=== PATIENT | male | born 1930 | race Caucasian/White ===

== ENCOUNTER → 2017-08-12 | Outpatient (CLI) | payer MEDICARE, OTHER | END | disposition home or self-care (01) | LOC: CVU 10:45 | PROVIDERS: ATTEND Internal Medicine Cardiovascular Disease | DX: I37.1 Nonrheumatic pulmonary valve insufficiency (principal); I35.8 Other nonrheumatic aortic valve disorders; I51.7 Cardiomegaly; I25.10 Atherosclerotic heart disease of native coronary artery without angina pectoris; C44.90 Unspecified malignant neoplasm of skin, unspecified; Z87.891 Personal history of nicotine dependence | CPT/HCPCS: 93306 ==

== ENCOUNTER 2018-09-14 16:44 | Inpatient (IN) | payer MEDICARE, OTHER ==
[~2018-09-14] VITALS: Ht 177.8 cm; Wt 80.4 kg
[2018-09-14 17:31] LABS: INTERNATIONAL NORMALIZED RATIO 1.72 (0.93-1.1); PROTHROMBIN TIME 17.5 Seconds (9.6-11.5)
[2018-09-14 17:35] LABS: ALANINE AMINOTRANSFERASE 25 U/L (12-78); ALBUMIN 2.5 g/dL (3.4-5.0); ANION GAP 11 mmol/L (5-15); CALCIUM 7.3 mg/dL (8.5-10.1); CHLORIDE 117 mmol/L (98-107); CREATININE 2.49 mg/dL (0.7-1.3)
[2018-09-14 17:37] LABS: ALKALINE PHOSPHATASE 60 U/L (45-117); BILIRUBIN,TOTAL 0.9 mg/dL (0.2-1.0); TOTAL PROTEIN 5.7 g/dL (6.4-8.2)
[2018-09-14 17:41] LABS: BASOPHILS # (AUTO) 0.11 x10^3/uL (0-0.1); BASOPHILS % (AUTO) 1 % (0-1); EOSINOPHILS # (AUTO) 0.05 x10^3/uL (0-0.4); EOSINOPHILS % (AUTO) 0 % (1-7); LYMPHOCYTES # (AUTO) 1.75 x10^3/uL (1-3.4); LYMPHOCYTES % (AUTO) 14 % (22-44); MD NO; MEAN CORPUSCULAR HEMOGLOBIN 32.1 pg (27.5-34.5); MEAN CORPUSCULAR VOLUME 94.4 fL (81-97); MEAN PLATELET VOLUME 7.9 fL (7.4-10.4); MONOCYTES % (AUTO) 7 % (2-9); NEUTROPHILS # (AUTO) 9.67 x10^3/uL (1.8-6.8); NEUTROPHILS % (AUTO) 78 % (42-75); PLATELET COUNT 161 x10^3/uL (130-400); RED CELL DISTRIBUTION WIDTH 17.1 % (9.4-14.8)
[2018-09-14] MEDS ORDERED: AUGMENTIN PO (17:41)
[2018-09-14] MEDS ORDERED: ATEN25TA PO (17:41)
[2018-09-14] MEDS ORDERED: SIMV20TA3 PO (17:41)
[2018-09-14] MEDS ORDERED: AMLO10TA6 PO (17:41)
[2018-09-14] MEDS ORDERED: DILT240C2 PO (17:41)
[2018-09-14] MEDS ORDERED: WARF5TAB PO (17:41)
[2018-09-14] MEDS ORDERED: FURO40TA6 PO (17:41)
[2018-09-14] MEDS ORDERED: ALLO300T PO (17:41)
[2018-09-14] MEDS ORDERED: ONDANSETRON ODT 4 MG PO PRN (19:30)
[2018-09-14] MEDS ORDERED: PANTOPRAZOLE 80 MG in SODIUM CHLORIDE 0.9% 50 ML IV ONE (19:30)
[2018-09-14] MEDS ORDERED: ACETAMINOPHEN 325 MG TABLET PO PRN (19:30)
[2018-09-14] MEDS: AUGMENTIN MC SCH ×2 (19:30→22:30)
[2018-09-14] MEDS ORDERED: SODIUM CHLORIDE 0.45% 1,000 ML IV SCH (19:30)
[2018-09-14] MEDS: [UNRECOGNIZED DRUG - OTHER] MC SCH (19:30)
[2018-09-14] MEDS ORDERED: SIMVASTATIN 20 MG TABLET PO SCH (21:00)
[2018-09-14] MEDS: AUGMENTIN PO SCH (21:27)
[2018-09-14] MEDS: PANTOPRAZOLE 80 MG in SODIUM CHLORIDE 0.9% 100 ML IV SCH (21:27)
[2018-09-14 23:28] VITALS: BP 106/65
[2018-09-14 23:31] VITALS: BP 118/71
[2018-09-14 23:37] VITALS: BP 114/70
[2018-09-14 23:45] VITALS: BP 109/68
[2018-09-15] VITALS (8 sets, daily range): BP systolic 99–111; BP diastolic 56–76
[2018-09-15] MEDS: AUGMENTIN MC SCH ×2 (03:30→05:46)
[2018-09-15] MEDS: [UNRECOGNIZED DRUG - OTHER] MC SCH (03:30)
[2018-09-15] MEDS ORDERED: ALBUTEROL/IPRATROPIUM 2.5MG/0.5MG, 3 ML ONE (04:15)
[2018-09-15 04:16] LABS: CREATININE,URINE RANDOM 37.9 mg/dL
[2018-09-15] MEDS ORDERED: LORazepam 2 MG/ML, 1ML IVPush ONE (04:30)
[2018-09-15 04:57] LABS: BASOPHILS # (AUTO) 0.07 x10^3/uL (0-0.1); BASOPHILS % (AUTO) 1 % (0-1); EOSINOPHILS % (AUTO) 1 % (1-7); LYMPHOCYTES # (AUTO) 1.45 x10^3/uL (1-3.4); LYMPHOCYTES % (AUTO) 12 % (22-44); MD NO; MEAN CORPUSCULAR HGB CONC 34.4 g/dL (33.2-36.2); MEAN PLATELET VOLUME 7.3 fL (7.4-10.4); MONOCYTES # (AUTO) 0.76 x10^3/uL (0.2-0.8); MONOCYTES % (AUTO) 7 % (2-9); NEUTROPHILS # (AUTO) 9.26 x10^3/uL (1.8-6.8); NEUTROPHILS % (AUTO) 80 % (42-75); PLATELET COUNT 162 x10^3/uL (130-400); RED BLOOD COUNT 2.92 x10^6/uL (4.38-5.82); RED CELL DISTRIBUTION WIDTH 18.1 % (9.4-14.8)
[2018-09-15 05:06] LABS: INTERNATIONAL NORMALIZED RATIO 2.01 (0.93-1.1); PROTHROMBIN TIME 20.4 Seconds (9.6-11.5)
[2018-09-15 05:09] LABS: ALBUMIN 2.8 g/dL (3.4-5.0); ANION GAP 8 mmol/L (5-15); CALCIUM 8.1 mg/dL (8.5-10.1); CHLORIDE 116 mmol/L (98-107)
[2018-09-15 05:16] LABS: ALANINE AMINOTRANSFERASE 26 U/L (12-78); ALKALINE PHOSPHATASE 61 U/L (45-117); BILIRUBIN,TOTAL 0.7 mg/dL (0.2-1.0); CREATININE 2.61 mg/dL (0.7-1.3); TROPONIN I 0.022 ng/mL (0.000-0.045)
[2018-09-15] MEDS: AMLODIPINE 10 MG TAB PO SCH (08:41)
[2018-09-15] MEDS: DILTIAZEM 240 MG CAP.ER.24H PO SCH (08:41)
[2018-09-15] MEDS: PANTOPRAZOLE 80 MG in SODIUM CHLORIDE 0.9% 100 ML IV SCH ×2 (08:41→21:04)
[2018-09-15] MEDS: ATENOLOL 100 MG TABLET PO SCH (08:41)
[2018-09-15] MEDS: AUGMENTIN PO SCH (08:42)
[2018-09-15] MEDS ORDERED: AMOXICILLIN/CLAV. 400 MG/5 ML ORAL SUSP PO SCH (10:30)
[2018-09-15] MEDS ORDERED: PROPOFOL 10 MG/ML, 20ML ONE (11:02)
[2018-09-15] MEDS ORDERED: EPINEPHRINE SYRINGE 0.1 MG/ML, 10ML ONE (11:40)
[2018-09-15 13:42] LABS: TROPONIN I 0.024 ng/mL (0.000-0.045)
[2018-09-15] MEDS: AMOXICILLIN/CLAV 500-125MG TABLET PO SCH (15:09)
[2018-09-15] MEDS ORDERED: PHENYLEPHRINE 10 MG/ML ONE (16:01)
[2018-09-15] MEDS: ALBUTEROL SULFATE 2.5 MG/3 ML NPPB PRN (20:06)
[2018-09-15] MEDS: ATORVASTATIN 20 MG TABLET PO SCH (21:04)
[2018-09-16 00:10] VITALS: BP 103/58
[2018-09-16] MEDS: ALBUTEROL SULFATE 2.5 MG/3 ML NPPB PRN ×2 (03:30→11:40)
[2018-09-16] MEDS: AMOXICILLIN/CLAV 500-125MG TABLET PO SCH (03:48)
[2018-09-16 04:00] VITALS: BP 110/66
[2018-09-16 07:30] VITALS: BP 112/72
[2018-09-16] MEDS: ATENOLOL 100 MG TABLET PO SCH (09:06)
[2018-09-16] MEDS: DILTIAZEM 240 MG CAP.ER.24H PO SCH (09:06)
[2018-09-16] MEDS: AMLODIPINE 10 MG TAB PO SCH (09:06)
[2018-09-16 09:12] LABS: BASOPHILS # (AUTO) 0.07 x10^3/uL (0-0.1); BASOPHILS % (AUTO) 1 % (0-1); EOSINOPHILS # (AUTO) 0.17 x10^3/uL (0-0.4); EOSINOPHILS % (AUTO) 1 % (1-7); LYMPHOCYTES # (AUTO) 1.06 x10^3/uL (1-3.4); LYMPHOCYTES % (AUTO) 9 % (22-44); MD NO; MEAN CORPUSCULAR HEMOGLOBIN 31.5 pg (27.5-34.5); MEAN CORPUSCULAR HGB CONC 32.9 g/dL (33.2-36.2); MEAN CORPUSCULAR VOLUME 95.8 fL (81-97); MEAN PLATELET VOLUME 7.1 fL (7.4-10.4); MONOCYTES # (AUTO) 0.54 x10^3/uL (0.2-0.8); MONOCYTES % (AUTO) 5 % (2-9); NEUTROPHILS # (AUTO) 9.93 x10^3/uL (1.8-6.8); NEUTROPHILS % (AUTO) 84 % (42-75); PLATELET COUNT 161 x10^3/uL (130-400); RED BLOOD COUNT 2.57 x10^6/uL (4.38-5.82); RED CELL DISTRIBUTION WIDTH 19.4 % (9.4-14.8)
[2018-09-16 09:26] LABS: ALBUMIN 2.5 g/dL (3.4-5.0); ANION GAP 6 mmol/L (5-15); CALCIUM 7.9 mg/dL (8.5-10.1); CHLORIDE 119 mmol/L (98-107)
[2018-09-16 09:29] LABS: ALANINE AMINOTRANSFERASE 24 U/L (12-78); ALKALINE PHOSPHATASE 61 U/L (45-117); BILIRUBIN,TOTAL 0.6 mg/dL (0.2-1.0); CREATININE 2.35 mg/dL (0.7-1.3); TOTAL PROTEIN 5.6 g/dL (6.4-8.2)
[2018-09-16] MEDS: PANTOPRAZOLE 80 MG in SODIUM CHLORIDE 0.9% 100 ML IV SCH (10:16)
[2018-09-16 12:38] VITALS: BP 109/71
[2018-09-16] MEDS ORDERED: AMPICILLIN/SULBACTAM 3 GM in SODIUM CHLORIDE 0.9% 100 ML IV SCH (14:00)
[2018-09-16] MEDS ORDERED: PHARMACY MAY ADJ FOR RENAL FX MC PRN (14:00)
[2018-09-16] MEDS ORDERED: GUAIFENESIN ER 600 MG TABLET PO SCH ×2 (16:30→21:00)
[2018-09-16 17:05] LABS: MICROSCOPIC AUTO
[2018-09-16 17:15] LABS: CREATININE,URINE RANDOM 58.2 mg/dL
[2018-09-16] MEDS: GUAIFENESIN ER 600 MG TABLET PO SCH ×2 (17:48→20:40)
[2018-09-16] MEDS: AMPICILLIN/SULBACTAM 3 GM in SODIUM CHLORIDE 0.9% 100 ML IV SCH (17:48)
[2018-09-16] MEDS: ALBUTEROL/IPRATROPIUM 2.5MG/0.5MG, 3 ML NPPB SCH (19:19)
[2018-09-16 19:44] VITALS: BP 99/56
[2018-09-16] MEDS: ATORVASTATIN 20 MG TABLET PO SCH (20:40)
[2018-09-16] MEDS: PANTOPROZOLE 40MG TABLET PO SCH (20:40)
[2018-09-17] VITALS (12 sets, daily range): BP systolic 57–101; BP diastolic 38–58
[2018-09-17 05:32] LABS: ALBUMIN 2.3 g/dL (3.4-5.0); ANION GAP 5 mmol/L (5-15); CALCIUM 7.9 mg/dL (8.5-10.1); CHLORIDE 121 mmol/L (98-107)
[2018-09-17 05:34] LABS: INTERNATIONAL NORMALIZED RATIO 4.83 (0.93-1.1); PROTHROMBIN TIME 48.2 Seconds (9.6-11.5)
[2018-09-17] MEDS: AMPICILLIN/SULBACTAM 3 GM in SODIUM CHLORIDE 0.9% 100 ML IV SCH (06:01)
[2018-09-17] MEDS: ALBUTEROL/IPRATROPIUM 2.5MG/0.5MG, 3 ML NPPB SCH ×2 (07:10→11:39)
[2018-09-17] MEDS: PANTOPROZOLE 40MG TABLET PO SCH (08:53)
[2018-09-17] MEDS: DILTIAZEM 240 MG CAP.ER.24H PO SCH (08:53)
[2018-09-17] MEDS: GUAIFENESIN ER 600 MG TABLET PO SCH (08:53)
[2018-09-17] MEDS: AMLODIPINE 10 MG TAB PO SCH (08:54)
[2018-09-17] MEDS: ATENOLOL 100 MG TABLET PO SCH (08:54)
[2018-09-17] MEDS ORDERED: SODIUM CHLORIDE 0.9%, 250ML IVBOLUS ONE (09:00)
[2018-09-17 09:46] LABS: MEAN CORPUSCULAR HEMOGLOBIN 32.5 pg (27.5-34.5); MEAN CORPUSCULAR HGB CONC 33.1 g/dL (33.2-36.2); MEAN CORPUSCULAR VOLUME 98.1 fL (81-97); MEAN PLATELET VOLUME 7.9 fL (7.4-10.4); PLATELET COUNT 153 x10^3/uL (130-400); RED BLOOD COUNT 2.02 x10^6/uL (4.38-5.82); RED CELL DISTRIBUTION WIDTH 19.4 % (9.4-14.8)
[2018-09-17 09:59] LABS: BASOPHILS # (AUTO) 0.07 x10^3/uL (0-0.1); BASOPHILS % (AUTO) 1 % (0-1); EOSINOPHILS # (AUTO) 0.21 x10^3/uL (0-0.4); EOSINOPHILS % (AUTO) 2 % (1-7); LYMPHOCYTES # (AUTO) 1.08 x10^3/uL (1-3.4); LYMPHOCYTES % (AUTO) 11 % (22-44); MD SCAN; MONOCYTES # (AUTO) 0.55 x10^3/uL (0.2-0.8); MONOCYTES % (AUTO) 5 % (2-9); NEUTROPHILS # (AUTO) 8.29 x10^3/uL (1.8-6.8); NEUTROPHILS % (AUTO) 81 % (42-75)
[2018-09-17] MEDS ORDERED: PHYTONADIONE 10 MG/ML, 1ML SQ ONE (14:00)
[2018-09-17] MEDS ORDERED: PIPERACILLIN/TAZO/PMX 3.375GM 50 ML IV SCH (15:00)
[2018-09-17] MEDS ORDERED: PHARMACY MAY ADJ FOR RENAL FX MC PRN (15:00)
[2018-09-17] MEDS ORDERED: LORazepam 2 MG/ML, 1ML ONE (15:06)
[2018-09-17] MEDS ORDERED: MORPHINE SULFATE 4 MG/ML, 1ML ONE (15:06)
[2018-09-17] MEDS: LORazepam 2 MG/ML, 1ML IVPush PRN ×2 (15:22→17:33)
[2018-09-17] MEDS ORDERED: MORPHINE SULFATE 4 MG/ML, 1ML IVPush PRN (15:30)
[2018-09-17] MEDS ORDERED: PROCHLORPERAZINE 5 MG/ML, 2ML IVPush PRN (15:30)
[2018-09-17] MEDS ORDERED: ATROPINE OPHTH SOLN 1%, 2ML BC PRN (15:30)
[2018-09-17] MEDS ORDERED: SCOPOLAMINE PATCH, 1.5MG PATCH.TD72 TD SCH (15:30)
[2018-09-17] MEDS: MORPHINE SULFATE 4 MG/ML, 1ML IVPush PRN ×5 (15:45→18:09)
[2018-09-18] MEDS ORDERED: ATENOLOL 50 MG TABLET PO SCH (09:00)
== END 2018-09-17 22:01 | disposition expired | DRG 377 ==
LOC: ED 18:07 → EDIP 18:13 → ED 18:55 → 4WST 19:12
PROVIDERS: ADMIT Internal Medicine; ATTEND Family Medicine
PROC: 30233L1 Transfusion of Nonautologous Fresh Plasma into Peripheral Vein, Percutaneous Approach (ICD-10-PCS; 2018-09-15)
PROC: 30233K1 Transfusion of Nonautologous Frozen Plasma into Peripheral Vein, Percutaneous Approach (ICD-10-PCS; 2018-09-15)
PROC: 0W3P8ZZ Control Bleeding in Gastrointestinal Tract, Via Natural or Artificial Opening Endoscopic (ICD-10-PCS; principal; 2018-09-15 12:30)
PROC: 30233N1 Transfusion of Nonautologous Red Blood Cells into Peripheral Vein, Percutaneous Approach (ICD-10-PCS; 2018-09-17)
DX: K26.4 Chronic or unspecified duodenal ulcer with hemorrhage (principal); N17.0 Acute kidney failure with tubular necrosis; E43 Unspecified severe protein-calorie malnutrition; J18.9 Pneumonia, unspecified organism; D68.69 Other thrombophilia; E87.0 Hyperosmolality and hypernatremia; E87.2 Acidosis; D62 Acute posthemorrhagic anemia; J90 Pleural effusion, not elsewhere classified; J98.11 Atelectasis; Z66 Do not resuscitate; Z51.5 Encounter for palliative care; E78.5 Hyperlipidemia, unspecified; E87.5 Hyperkalemia; I12.9 Hypertensive chronic kidney disease with stage 1 through stage 4 chronic kidney disease, or unspecified chronic kidney disease; I25.10 Atherosclerotic heart disease of native coronary artery without angina pectoris; I48.2 Chronic atrial fibrillation; M10.9 Gout, unspecified; N18.3 Chronic kidney disease, stage 3 (moderate); T45.515A Adverse effect of anticoagulants, initial encounter; Z96.1 Presence of intraocular lens; Z79.01 Long term (current) use of anticoagulants; Z80.41 Family history of malignant neoplasm of ovary; Z80.42 Family history of malignant neoplasm of prostate; Z85.828 Personal history of other malignant neoplasm of skin; I25.2 Old myocardial infarction; Z87.11 Personal history of peptic ulcer disease; Z87.891 Personal history of nicotine dependence; Z90.49 Acquired absence of other specified parts of digestive tract; Z85.46 Personal history of malignant neoplasm of prostate; Z88.8 Allergy status to other drugs, medicaments and biological substances; Z88.7 Allergy status to serum and vaccine; Z68.25 Body mass index [BMI] 25.0-25.9, adult; Y92.89 Other specified places as the place of occurrence of the external cause; Z98.42 Cataract extraction status, left eye; Z98.41 Cataract extraction status, right eye
CPT/HCPCS: 36415; 36430; 71250; 74176; 76770; 80053; 80069; 81001; 82306; 82436; 82570; 82962; 83605; 83970; 84133; 84145; 84156; 84300; 84484; 85014; 85018; 85025; 85610; 86677; 86850; 86900; 86923; 87070; 87077; 87186; 87205; 93005; 94640; 96374; C8929; G0378; J0295; J2270; J2704; J3430; J7613; J7620; Q9957; C9113; J2060; J2370; J7050; P9016; P9017